=== PATIENT | female | born 1960 | race Caucasian/White ===

== ENCOUNTER 2023-09-21 14:41 | Emergency (ER) | payer BC, OTHER ==
[~2023-09-21] VITALS: Ht 162.6 cm; Wt 48.1 kg
[2023-09-21 15:08] LABS: BASOPHILS # (AUTO) 0.1 K/UL (0.0-0.2); BASOPHILS % (AUTO) 1.9 % (0.0-2.0); EOSINOPHILS # (AUTO) 0.2 K/uL (0.0-0.7); EOSINOPHILS % (AUTO) 3.3 % (0.0-7.0); HEMATOCRIT 33.2 % (31.2-41.9); HEMOGLOBIN 10.9 g/dL (10.9-14.3); LYMPHOCYTES # (AUTO) 1.7 K/uL (0.8-4.8); LYMPHOCYTES % (AUTO) 34.9 % (20.5-51.5); MEAN CORPUSCULAR HEMOGLOBIN 30.5 uug (24.7-32.8); MEAN CORPUSCULAR HGB CONC 33 g/dL (32.3-35.6); MEAN CORPUSCULAR VOLUME 92.9 fL (75.5-95.3); MONOCYTES # (AUTO) 0.4 K/uL (0.1-1.30); MONOCYTES % (AUTO) 7.3 % (0.0-11.0); NEUTROPHILS # (AUTO) 2.6 K/uL (1.8-8.9); NEUTROPHILS % (AUTO) 52.6 % (38.5-71.5); PLATELET COUNT (AUTO) 208 K/uL (179-408); RED BLOOD CELL COUNT(AUTO) 3.57 MIL/uL (3.63-4.92); RED CELL DISTRIBUTION WIDTH 13.8 % (12.3-17.7); WHITE BLOOD COUNT (AUTO) 4.9 K/uL (3.8-11.8)
[2023-09-21 15:10] LABS: DIFFERENTIAL COMMENT 1
[2023-09-21 15:15] LABS: CALCIUM 7.9 mg/dL (8.5-10.1); POTASSIUM 3.3 mmol/L (3.5-5.1)
[2023-09-21] MEDS: POTASSIUM BICARBONATE/CIT AC 25 MEQ TABLET.EFF PO ONE (15:37)
[2023-09-21] MEDS ORDERED: POTASSIUM BICARBONATE/CIT AC 25 MEQ TABLET.EFF ONE (15:37)
[2023-09-21] MEDS ORDERED: POTA25TA7 PO (15:47)
[2023-09-21 16:16] VITALS: BP 98/61; O2SAT 99
== END 2023-09-21 16:10 | disposition home or self-care (01) ==
LOC: ER 14:41
DX: R55 Syncope and collapse (principal); E87.6 Hypokalemia; E83.51 Hypocalcemia; Z88.1 Allergy status to other antibiotic agents
CPT/HCPCS: 36415; 85025; 93005; A4606; A4663